=== PATIENT | female | born 1935 | race Caucasian/White ===

== ENCOUNTER 2022-11-13 11:06 | Inpatient (IN) | payer OTHER, BC ==
[~2022-11-13] VITALS: Ht 157.5 cm; Wt 91.2 kg
[2022-11-13] VITALS (14 sets, daily range): BP systolic 137–176; PULSE 76–104; RESP 17–31; TEMP 96.5–98.1; O2SAT 95–100
[2022-11-13 11:50] LABS: BASOPHILS # (AUTO) 0.1 K/uL (0.0-0.2); BASOPHILS % (AUTO) 0.4 % (0.0-2.0); EOSINOPHILS # (AUTO) 0.9 K/uL (0.0-0.4); EOSINOPHILS % (AUTO) 7.5 % (0.0-4.0); HEMATOCRIT 23.9 % (36-48); HEMOGLOBIN 7.4 g/dL (12.0-16.0); LYMPHOCYTES # (AUTO) 2.1 K/uL (1.0-5.5); LYMPHOCYTES % (AUTO) 17.2 % (20.5-51.5); MEAN CORPUSCULAR HEMOGLOBIN 29 pg (27-31); MEAN CORPUSCULAR HGB CONC 31 % (32-36); MEAN CORPUSCULAR VOLUME 95 fL (79.0-98.0); MONOCYTES # (AUTO) 1.2 K/uL (0.0-1.0); MONOCYTES % (AUTO) 9.3 % (1.7-9.3); NEUTROPHILS # (AUTO) 8.2 K/uL (1.8-7.7); NEUTROPHILS % (AUTO) 65.6 % (40.0-70.0); PLATELET COUNT (AUTO) 387 K/uL (130-430); RED BLOOD CELL COUNT(AUTO) 2.53 MIL/uL (4.2-6.2); RED CELL DISTRIBUTION WIDTH 19.6 % (9.0-15.0); WHITE BLOOD COUNT (AUTO) 12.5 K/uL (4.8-10.8)
[2022-11-13 12:12] LABS: ALANINE AMINOTRANSFERASE 15 U/L (12-78); ALBUMIN 2.4 g/dL (3.4-4.8); ANION GAP 3 (5-15); ASPARTATE AMINOTRANSFERASE 15 U/L (10-37); CALCIUM 8.9 mg/dL (8.4-11.0); CARBON DIOXIDE 33 mmol/L (23-29); CHLORIDE 97 mmol/L (98-107); GLUCOSE 125 mg/dL (74-106); SODIUM SERUM 133 mmol/L (136-145); TOTAL BILIRUBIN 0.3 mg/dL (0.0-1.0); TOTAL PROTEIN, SERUM 7.7 g/dL (6.4-8.3); UREA NITROGEN, BLOOD 39 mg/dL (8-21)
[2022-11-13 12:20] LABS: POTASSIUM 6.4 mmol/L (3.5-5.1)
[2022-11-13] MEDS ORDERED: FURO20TA4 GT (12:25)
[2022-11-13] MEDS ORDERED: CEFE1VIA3 IV (12:25)
[2022-11-13] MEDS ORDERED: FERR220S5 GT (12:25)
[2022-11-13] MEDS ORDERED: LACT1CAP14 GT (12:25)
[2022-11-13] MEDS ORDERED: BUDE0.5A INH (12:25)
[2022-11-13] MEDS ORDERED: INSU100V9 SUBCUT (12:25)
[2022-11-13] MEDS ORDERED: ALBU2.5V7 INH (12:25)
[2022-11-13] MEDS ORDERED: INSU100V SUBCUT (12:25)
[2022-11-13] MEDS ORDERED: HYDR-4037 GT (12:25)
[2022-11-13] MEDS ORDERED: ACET160O10 GT (12:25)
[2022-11-13] MEDS ORDERED: ASPI-524 PO (12:25)
[2022-11-13] MEDS ORDERED: DILT60TA3 GT (12:25)
[2022-11-13] MEDS ORDERED: LORA-258 GT (12:25)
[2022-11-13] MEDS ORDERED: PERIDEX PO (12:25)
[2022-11-13] MEDS ORDERED: DAPA10TA GT (12:25)
[2022-11-13] MEDS ORDERED: SERT25TA GT (12:26)
[2022-11-13] MEDS ORDERED: TRAM50TA2 PO (12:26)
[2022-11-13] MEDS ORDERED: LANS30CA56 GT (12:26)
[2022-11-13] MEDS ORDERED: SACU1TAB GT (12:26)
[2022-11-13] MEDS ORDERED: SPIR25TA6 GT (12:26)
[2022-11-13] MEDS ORDERED: METO25TA6 GT (12:26)
[2022-11-13] MEDS ORDERED: POLY17PO44 GT (12:26)
[2022-11-13] MEDS ORDERED: LACT10SO7 GT (12:26)
[2022-11-13] MEDS ORDERED: METO5TAB86 GT (12:26)
[2022-11-13] MEDS ORDERED: 0.45% NACL 1,000 ML IV ONE (12:45)
[2022-11-13] MEDS: SODIUM ZIRCONIUM CYCLOSILICATE 10 GM POWD.PACK PO ONE ×2 (12:45→16:45)
[2022-11-13] MEDS ORDERED: ASA81 PO (13:18)
[2022-11-13] MEDS ORDERED: LORazepam 2 MG/ML VIAL IVP ONE (13:30)
[2022-11-13] MEDS ORDERED: LORazepam 1 MG TABLET GT ONE (13:30)
[2022-11-13] MEDS: IPRATROPIUM/ALBUTEROL SULFATE 3 ML AMPUL.NEB (DUONEB) INH SCH ×3 (15:05→23:04)
[2022-11-13] MEDS ORDERED: traMADol HCL HCL 50 MG TABLET (ULTRAM) PO SCH (15:45)
[2022-11-13] MEDS ORDERED: LORazepam 1 MG TABLET GT PRN (15:45)
[2022-11-13] MEDS ORDERED: ALBUTEROL SULFATE 0.083% 2.5 MG/3 ML VIAL.NEB INH PRN (15:45)
[2022-11-13] MEDS ORDERED: SODIUM ZIRCONIUM CYCLOSILICATE 10 GM POWD.PACK PO ONE (16:35)
[2022-11-13] MEDS ORDERED: traMADol HCL HCL 50 MG TABLET (ULTRAM) GT PRN (16:45)
[2022-11-13] MEDS ORDERED: traMADol HCL HCL 50 MG TABLET (ULTRAM) ONE (16:57)
[2022-11-13] MEDS ORDERED: DEXTROSE 50% JECT 50 ML DISP.SYRIN ONE (18:31)
[2022-11-13] MEDS ORDERED: DEXTROSE 50% JECT 50 ML DISP.SYRIN IVP ONE (18:45)
[2022-11-13] MEDS ORDERED: D5/0.45 NS 500 ML IV ONE (18:45)
[2022-11-13] MEDS: BUDESONIDE 0.5 MG/2 ML AMPUL.NEB INH SCH (20:03)
[2022-11-13] MEDS: INSULIN GLARGINE 100 UNITS/ML, 10 ML VIAL SUBCUT SCH (21:00)
[2022-11-13] MEDS: FERROUS SULFATE 300 MG/5 ML UDC GT SCH (21:00)
[2022-11-13] MEDS ORDERED: CHLORHEXIDINE GLUCONATE 15 ML/DOSE, 480 ML MM SCH (21:00)
[2022-11-13] MEDS ORDERED: SPIRONOLACTONE 25 MG TABLET (ALDACTONE) GT SCH (21:00)
[2022-11-13 21:31] LABS: ANION GAP 3 (5-15); CALCIUM 9.3 mg/dL (8.4-11.0); CARBON DIOXIDE 30 mmol/L (23-29); CHLORIDE 103 mmol/L (98-107); GLUCOSE 111 mg/dL (74-106); POTASSIUM 5.7 mmol/L (3.5-5.1); SODIUM SERUM 136 mmol/L (136-145); UREA NITROGEN, BLOOD 31 mg/dL (8-21)
[2022-11-13] MEDS: POLYETHYLENE GLYCOL 3350, 17 GM/ POWD.PACK GT SCH (22:11)
[2022-11-13] MEDS: FUROSEMIDE 20 MG TABLET GT SCH (22:12)
[2022-11-13] MEDS: LANSOPRAZOLE 30 MG CAPSULE.DR GT SCH (22:12)
[2022-11-13] MEDS: DILTIAZEM HCL 60 MG TABLET GT SCH (22:12)
[2022-11-13] MEDS: SACUBITRIL/VALSARTAN 24 MG-26 MG 1 TABLET PO SCH (22:13)
[2022-11-13] MEDS: hydrALAZINE HCL 10 MG TABLET GT SCH (22:15)
[2022-11-13] MEDS ORDERED: hydrALAZINE HCL 10 MG TABLET ONE (22:17)
[2022-11-13] MEDS: AZTREONAM 1 GM in NS 50 ML IV SCH (22:18)
[2022-11-14] VITALS (36 sets, daily range): BP systolic 93–175; PULSE 78–103; RESP 12–39; TEMP 96.8–97.8; O2SAT 90–100
[2022-11-14 01:48] LABS: BASOPHILS # (AUTO) 0.1 K/uL (0.0-0.2); BASOPHILS % (AUTO) 0.9 % (0.0-2.0); EOSINOPHILS # (AUTO) 0.9 K/uL (0.0-0.4); EOSINOPHILS % (AUTO) 8.7 % (0.0-4.0); HEMATOCRIT 31.6 % (36-48); HEMOGLOBIN 10.2 g/dL (12.0-16.0); LYMPHOCYTES % (AUTO) 18.8 % (20.5-51.5); MEAN CORPUSCULAR HEMOGLOBIN 29 pg (27-31); MEAN CORPUSCULAR HGB CONC 32 % (32-36); MEAN CORPUSCULAR VOLUME 88 fL (79.0-98.0); MONOCYTES % (AUTO) 9.7 % (1.7-9.3); NEUTROPHILS # (AUTO) 6.7 K/uL (1.8-7.7); NEUTROPHILS % (AUTO) 61.9 % (40.0-70.0); PLATELET COUNT (AUTO) 349 K/uL (130-430); RED BLOOD CELL COUNT(AUTO) 3.58 MIL/uL (4.2-6.2); RED CELL DISTRIBUTION WIDTH 21.4 % (9.0-15.0); WHITE BLOOD COUNT (AUTO) 10.9 K/uL (4.8-10.8)
[2022-11-14 02:14] LABS: ALANINE AMINOTRANSFERASE 9 U/L (12-78); ALBUMIN 2.4 g/dL (3.4-4.8); ANION GAP 3 (5-15); ASPARTATE AMINOTRANSFERASE 19 U/L (10-37); CALCIUM 9.8 mg/dL (8.4-11.0); CARBON DIOXIDE 31 mmol/L (23-29); CHLORIDE 103 mmol/L (98-107); CREATININE 0.63 mg/dL (0.55-1.30); GLUCOSE 96 mg/dL (74-106); POTASSIUM 5.7 mmol/L (3.5-5.1); SODIUM SERUM 137 mmol/L (136-145); TOTAL BILIRUBIN 0.5 mg/dL (0.0-1.0); TOTAL PROTEIN, SERUM 7.8 g/dL (6.4-8.3); UREA NITROGEN, BLOOD 29 mg/dL (8-21)
[2022-11-14 02:23] LABS: TOTAL IRON BIND. CAPACITY 323 ug/dL (250-450)
[2022-11-14] MEDS: IPRATROPIUM/ALBUTEROL SULFATE 3 ML AMPUL.NEB (DUONEB) INH SCH ×6 (03:11→23:05)
[2022-11-14] MEDS: AZTREONAM 1 GM in NS 50 ML IV SCH ×3 (05:40→22:03)
[2022-11-14] MEDS: hydrALAZINE HCL 10 MG TABLET GT SCH ×3 (05:41→22:03)
[2022-11-14] MEDS ORDERED: SODIUM POLYSTYRENE SULFONATE 15 GM/60 ML UDBTL GT ONE (07:45)
[2022-11-14] MEDS ORDERED: FUROSEMIDE 40 MG/4 ML VIAL IVP ONE (08:00)
[2022-11-14] MEDS ORDERED: NON-FORMULARY MEDICATION (Dapagliflozin Propanediol (Farxiga) 1 TAB) GT SCH (09:00)
[2022-11-14] MEDS: INSULIN GLARGINE 100 UNITS/ML, 10 ML VIAL SUBCUT SCH ×2 (09:00→21:00)
[2022-11-14] MEDS: FERROUS SULFATE 300 MG/5 ML UDC GT SCH ×3 (09:05→21:53)
[2022-11-14] MEDS: LACTOBACILLUS RHAMNOSUS GG 1 CAP CAPSULE GT SCH (09:06)
[2022-11-14] MEDS: LANSOPRAZOLE 30 MG CAPSULE.DR GT SCH ×2 (09:06→21:53)
[2022-11-14] MEDS: METOCLOPRAMIDE HCL 10 MG TABLET GT SCH ×4 (09:06→21:54)
[2022-11-14] MEDS: SERTRALINE HCL 50 MG TABLET GT SCH (09:08)
[2022-11-14] MEDS: DILTIAZEM HCL 60 MG TABLET GT SCH ×3 (09:09→21:52)
[2022-11-14] MEDS: SACUBITRIL/VALSARTAN 24 MG-26 MG 1 TABLET PO SCH ×2 (09:10→22:02)
[2022-11-14] MEDS: POLYETHYLENE GLYCOL 3350, 17 GM/ POWD.PACK GT SCH ×2 (09:10→21:54)
[2022-11-14] MEDS: FUROSEMIDE 20 MG TABLET GT SCH ×2 (09:10→21:54)
[2022-11-14] MEDS: ASPIRIN 81 MG TAB.CHEW PO SCH (09:15)
[2022-11-14] MEDS: BUDESONIDE 0.5 MG/2 ML AMPUL.NEB INH SCH ×2 (09:43→20:10)
[2022-11-14] MEDS ORDERED: LORazepam 2 MG/ML VIAL IVP PRN (12:30)
[2022-11-14] MEDS ORDERED: amLODIPine BESYLATE 10 MG TABLET PO ONE (12:45)
[2022-11-14] MEDS: INSULIN REGULAR, HUMAN 100 UNITS/ML, 3 ML VIAL (humuLIN R) SUBCUT PRN (13:45)
[2022-11-14 13:57] LABS: ANION GAP 6 (5-15); CALCIUM 8.9 mg/dL (8.4-11.0); CARBON DIOXIDE 32 mmol/L (23-29); CHLORIDE 99 mmol/L (98-107); CREATININE 0.69 mg/dL (0.55-1.30); GLUCOSE 174 mg/dL (74-106); POTASSIUM 4.9 mmol/L (3.5-5.1); SODIUM SERUM 137 mmol/L (136-145); UREA NITROGEN, BLOOD 25 mg/dL (8-21)
[2022-11-14] MEDS: CHLORHEXIDINE GLUC 0.12% 15 ML MOUTHWASH UDC MM SCH ×2 (14:37→21:55)
[2022-11-14] MEDS: ACETYLCYSTEINE 20% 4 ML VIAL (RT) INH SCH ×3 (15:26→23:06)
[2022-11-15] VITALS (36 sets, daily range): BP systolic 101–190; PULSE 77–97; RESP 15–34; TEMP 97.4–97.8; O2SAT 92–100
[2022-11-15] MEDS: IPRATROPIUM/ALBUTEROL SULFATE 3 ML AMPUL.NEB (DUONEB) INH SCH ×6 (02:20→23:26)
[2022-11-15] MEDS: ACETYLCYSTEINE 20% 4 ML VIAL (RT) INH SCH ×6 (02:20→23:26)
[2022-11-15 05:19] LABS: BASOPHILS % (AUTO) 0.4 % (0.0-2.0); EOSINOPHILS # (AUTO) 0.9 K/uL (0.0-0.4); EOSINOPHILS % (AUTO) 9.4 % (0.0-4.0); HEMATOCRIT 32.1 % (36-48); HEMOGLOBIN 10.4 g/dL (12.0-16.0); LYMPHOCYTES # (AUTO) 1.9 K/uL (1.0-5.5); LYMPHOCYTES % (AUTO) 20.4 % (20.5-51.5); MEAN CORPUSCULAR HEMOGLOBIN 29 pg (27-31); MEAN CORPUSCULAR HGB CONC 32 % (32-36); MEAN CORPUSCULAR VOLUME 90 fL (79.0-98.0); NEUTROPHILS # (AUTO) 5.4 K/uL (1.8-7.7); NEUTROPHILS % (AUTO) 58.8 % (40.0-70.0); PLATELET COUNT (AUTO) 351 K/uL (130-430); RED BLOOD CELL COUNT(AUTO) 3.59 MIL/uL (4.2-6.2); RED CELL DISTRIBUTION WIDTH 21.1 % (9.0-15.0); WHITE BLOOD COUNT (AUTO) 9.2 K/uL (4.8-10.8)
[2022-11-15 05:27] LABS: ALANINE AMINOTRANSFERASE 11 U/L (12-78); ALBUMIN 2.2 g/dL (3.4-4.8); ANION GAP 7 (5-15); ASPARTATE AMINOTRANSFERASE 14 U/L (10-37); CALCIUM 8.8 mg/dL (8.4-11.0); CARBON DIOXIDE 31 mmol/L (23-29); CHLORIDE 101 mmol/L (98-107); CREATININE 0.66 mg/dL (0.55-1.30); GLUCOSE 137 mg/dL (74-106); POTASSIUM 4.4 mmol/L (3.5-5.1); SODIUM SERUM 139 mmol/L (136-145); TOTAL BILIRUBIN 0.5 mg/dL (0.0-1.0); TOTAL PROTEIN, SERUM 7.3 g/dL (6.4-8.3); UREA NITROGEN, BLOOD 21 mg/dL (8-21)
[2022-11-15 05:42] LABS: BILIRUBIN,URINE NEGATIVE (NEGATIVE); BLOOD, URINE NEGATIVE (NEGATIVE); COLOR,URINE YELLOW (YELLOW); GLUCOSE,URINE Trace (NEGATIVE); KETONES,URINE NEGATIVE (NEGATIVE); NITRITE, URINE NEGATIVE (NEGATIVE); PROTEIN URINE 2+ (NEGATIVE)
[2022-11-15] MEDS: AZTREONAM 1 GM in NS 50 ML IV SCH ×3 (06:04→21:34)
[2022-11-15] MEDS: hydrALAZINE HCL 10 MG TABLET GT SCH ×3 (06:04→21:34)
[2022-11-15 06:39] LABS: CLARITY/URINE CLOUDY (CLEAR); LEUKOCYTE ESTERASE ,URINE TRACE (NEGATIVE)
[2022-11-15 06:44] LABS: BACTERIA,URINE FEW /HPF (None Seen); RBC,URINE 0-3 /HPF (0-3); YEAST,URINE Many /HPF (None Seen)
[2022-11-15] MEDS ORDERED: LACTULOSE 20 GM/30 ML UDC GT PRN (07:15)
[2022-11-15] MEDS: BUDESONIDE 0.5 MG/2 ML AMPUL.NEB INH SCH ×2 (07:39→23:25)
[2022-11-15] MEDS: POLYETHYLENE GLYCOL 3350, 17 GM/ POWD.PACK GT SCH ×2 (09:00→21:31)
[2022-11-15] MEDS: METOCLOPRAMIDE HCL 10 MG TABLET GT SCH ×3 (09:35→21:31)
[2022-11-15] MEDS: LACTOBACILLUS RHAMNOSUS GG 1 CAP CAPSULE GT SCH (09:35)
[2022-11-15] MEDS: SERTRALINE HCL 50 MG TABLET GT SCH (09:35)
[2022-11-15] MEDS: FUROSEMIDE 20 MG TABLET GT SCH ×2 (09:35→21:31)
[2022-11-15] MEDS: FERROUS SULFATE 300 MG/5 ML UDC GT SCH ×2 (09:35→21:31)
[2022-11-15] MEDS: LANSOPRAZOLE 30 MG CAPSULE.DR GT SCH ×2 (09:35→21:31)
[2022-11-15] MEDS: DILTIAZEM HCL 60 MG TABLET GT SCH ×3 (09:36→21:30)
[2022-11-15] MEDS: ASPIRIN 81 MG TAB.CHEW PO SCH (09:36)
[2022-11-15] MEDS: SACUBITRIL/VALSARTAN 24 MG-26 MG 1 TABLET PO SCH ×2 (09:43→21:32)
[2022-11-15] MEDS: CHLORHEXIDINE GLUC 0.12% 15 ML MOUTHWASH UDC MM SCH ×3 (09:43→21:32)
[2022-11-15] MEDS: INSULIN GLARGINE 100 UNITS/ML, 10 ML VIAL SUBCUT SCH ×2 (09:44→21:32)
[2022-11-15] MEDS: INSULIN REGULAR, HUMAN 100 UNITS/ML, 3 ML VIAL (humuLIN R) SUBCUT PRN ×2 (12:53→23:39)
[2022-11-15] MEDS: traMADol HCL HCL 50 MG TABLET (ULTRAM) PO PRN ×2 (17:30→21:36)
[2022-11-16] VITALS (31 sets, daily range): BP systolic 129–184; PULSE 73–94; RESP 14–28; TEMP 97.7–99.8; O2SAT 93–100
[2022-11-16] MEDS: ACETYLCYSTEINE 20% 4 ML VIAL (RT) INH SCH ×6 (05:06→22:46)
[2022-11-16] MEDS: IPRATROPIUM/ALBUTEROL SULFATE 3 ML AMPUL.NEB (DUONEB) INH SCH ×6 (05:06→22:46)
[2022-11-16 05:20] LABS: BASOPHILS % (AUTO) 0.4 % (0.0-2.0); EOSINOPHILS # (AUTO) 0.9 K/uL (0.0-0.4); EOSINOPHILS % (AUTO) 10.8 % (0.0-4.0); HEMATOCRIT 31.5 % (36-48); HEMOGLOBIN 10.2 g/dL (12.0-16.0); LYMPHOCYTES # (AUTO) 2.1 K/uL (1.0-5.5); LYMPHOCYTES % (AUTO) 24.4 % (20.5-51.5); MEAN CORPUSCULAR HEMOGLOBIN 29 pg (27-31); MEAN CORPUSCULAR HGB CONC 32 % (32-36); MEAN CORPUSCULAR VOLUME 89 fL (79.0-98.0); MONOCYTES % (AUTO) 11.7 % (1.7-9.3); NEUTROPHILS # (AUTO) 4.6 K/uL (1.8-7.7); NEUTROPHILS % (AUTO) 52.7 % (40.0-70.0); PLATELET COUNT (AUTO) 342 K/uL (130-430); RED BLOOD CELL COUNT(AUTO) 3.54 MIL/uL (4.2-6.2); RED CELL DISTRIBUTION WIDTH 20.7 % (9.0-15.0); WHITE BLOOD COUNT (AUTO) 8.7 K/uL (4.8-10.8)
[2022-11-16 05:56] LABS: ANION GAP 6 (5-15); CARBON DIOXIDE 31 mmol/L (23-29); CHLORIDE 104 mmol/L (98-107); CREATININE 0.63 mg/dL (0.55-1.30); GLUCOSE 95 mg/dL (74-106); POTASSIUM 3.7 mmol/L (3.5-5.1); SODIUM SERUM 141 mmol/L (136-145); UREA NITROGEN, BLOOD 25 mg/dL (8-21)
[2022-11-16] MEDS: AZTREONAM 1 GM in NS 50 ML IV SCH ×3 (05:59→23:42)
[2022-11-16] MEDS: hydrALAZINE HCL 10 MG TABLET GT SCH ×3 (05:59→22:07)
[2022-11-16 08:06] LABS: FERRITIN 284 ng/mL (15-150); FOLATE (FOLIC ACID) >20.0 ng/mL (>3.0)
[2022-11-16] MEDS: BUDESONIDE 0.5 MG/2 ML AMPUL.NEB INH SCH ×2 (08:10→19:37)
[2022-11-16] MEDS: POLYETHYLENE GLYCOL 3350, 17 GM/ POWD.PACK GT SCH ×2 (09:00→22:04)
[2022-11-16] MEDS: DILTIAZEM HCL 60 MG TABLET GT SCH ×3 (09:22→22:10)
[2022-11-16] MEDS: FERROUS SULFATE 300 MG/5 ML UDC GT SCH ×2 (09:23→22:03)
[2022-11-16] MEDS: LACTOBACILLUS RHAMNOSUS GG 1 CAP CAPSULE GT SCH (09:23)
[2022-11-16] MEDS: LANSOPRAZOLE 30 MG CAPSULE.DR GT SCH ×2 (09:25→22:06)
[2022-11-16] MEDS: FUROSEMIDE 20 MG TABLET GT SCH ×2 (09:25→22:05)
[2022-11-16] MEDS: METOCLOPRAMIDE HCL 10 MG TABLET GT SCH ×3 (09:26→22:04)
[2022-11-16] MEDS: ASPIRIN 81 MG TAB.CHEW PO SCH (09:26)
[2022-11-16] MEDS: SERTRALINE HCL 50 MG TABLET GT SCH (09:26)
[2022-11-16] MEDS: INSULIN GLARGINE 100 UNITS/ML, 10 ML VIAL SUBCUT SCH ×2 (09:27→22:18)
[2022-11-16] MEDS: SACUBITRIL/VALSARTAN 24 MG-26 MG 1 TABLET PO SCH ×2 (09:30→22:07)
[2022-11-16] MEDS: CHLORHEXIDINE GLUC 0.12% 15 ML MOUTHWASH UDC MM SCH ×3 (09:30→22:05)
[2022-11-16] MEDS: traMADol HCL HCL 50 MG TABLET (ULTRAM) PO PRN (09:31)
[2022-11-17] VITALS (16 sets, daily range): BP systolic 135–174; PULSE 77–91; RESP 16–18; TEMP 97.7–98.5; O2SAT 96–100
[2022-11-17] MEDS: ACETYLCYSTEINE 20% 4 ML VIAL (RT) INH SCH ×5 (02:21→19:50)
[2022-11-17] MEDS: IPRATROPIUM/ALBUTEROL SULFATE 3 ML AMPUL.NEB (DUONEB) INH SCH ×5 (02:21→19:50)
[2022-11-17] MEDS: AZTREONAM 1 GM in NS 50 ML IV SCH ×2 (06:20→14:07)
[2022-11-17] MEDS: hydrALAZINE HCL 10 MG TABLET GT SCH ×2 (06:21→14:09)
[2022-11-17] MEDS: BUDESONIDE 0.5 MG/2 ML AMPUL.NEB INH SCH ×2 (10:01→19:51)
[2022-11-17] MEDS: DILTIAZEM HCL 60 MG TABLET GT SCH ×2 (10:26→14:08)
[2022-11-17] MEDS: LACTOBACILLUS RHAMNOSUS GG 1 CAP CAPSULE GT SCH (10:26)
[2022-11-17] MEDS: FERROUS SULFATE 300 MG/5 ML UDC GT SCH (10:26)
[2022-11-17] MEDS: LANSOPRAZOLE 30 MG CAPSULE.DR GT SCH (10:27)
[2022-11-17] MEDS: POLYETHYLENE GLYCOL 3350, 17 GM/ POWD.PACK GT SCH (10:27)
[2022-11-17] MEDS: FUROSEMIDE 20 MG TABLET GT SCH (10:27)
[2022-11-17] MEDS: METOCLOPRAMIDE HCL 10 MG TABLET GT SCH ×2 (10:27→14:11)
[2022-11-17] MEDS: ASPIRIN 81 MG TAB.CHEW PO SCH (10:28)
[2022-11-17] MEDS: CHLORHEXIDINE GLUC 0.12% 15 ML MOUTHWASH UDC MM SCH ×2 (10:28→14:11)
[2022-11-17] MEDS: SERTRALINE HCL 50 MG TABLET GT SCH (10:28)
[2022-11-17] MEDS: SACUBITRIL/VALSARTAN 24 MG-26 MG 1 TABLET PO SCH (10:30)
[2022-11-17] MEDS: INSULIN GLARGINE 100 UNITS/ML, 10 ML VIAL SUBCUT SCH (10:33)
[2022-11-18] MEDS ORDERED: EMPAGLIFLOZIN 10 MG TABLET PO SCH (09:00)
== END 2022-11-17 20:21 | DRG 207 ==
LOC: SED 11:06 → SMU 12:38 → SIC 19:19 → STU 11-16 19:48
PROVIDERS: ADMIT Family Medicine; ATTEND Family Medicine
PROC: 5A1955Z Respiratory Ventilation, Greater than 96 Consecutive Hours (ICD-10-PCS; principal; 2022-11-13)
PROC: 30233N1 Transfusion of Nonautologous Red Blood Cells into Peripheral Vein, Percutaneous Approach (ICD-10-PCS; 2022-11-13)
DX: J18.9 Pneumonia, unspecified organism (principal); J96.20 Acute and chronic respiratory failure, unspecified whether with hypoxia or hypercapnia; E43 Unspecified severe protein-calorie malnutrition; I42.9 Cardiomyopathy, unspecified; Z99.11 Dependence on respirator [ventilator] status; I50.22 Chronic systolic (congestive) heart failure; F03.90 Unspecified dementia, unspecified severity, without behavioral disturbance, psychotic disturbance, mood disturbance, and anxiety; D63.8 Anemia in other chronic diseases classified elsewhere; I48.0 Paroxysmal atrial fibrillation; R13.10 Dysphagia, unspecified; E87.5 Hyperkalemia; E11.9 Type 2 diabetes mellitus without complications; I11.0 Hypertensive heart disease with heart failure; E66.9 Obesity, unspecified; Z20.822 Contact with and (suspected) exposure to COVID-19; Z96.659 Presence of unspecified artificial knee joint; I35.0 Nonrheumatic aortic (valve) stenosis; Z88.5 Allergy status to narcotic agent; Z88.0 Allergy status to penicillin; Z91.041 Radiographic dye allergy status; Z79.899 Other long term (current) drug therapy; Z93.0 Tracheostomy status; Z74.01 Bed confinement status; Z79.4 Long term (current) use of insulin; Z79.82 Long term (current) use of aspirin; Z68.36 Body mass index [BMI] 36.0-36.9, adult; Z93.1 Gastrostomy status; Z86.73 Personal history of transient ischemic attack (TIA), and cerebral infarction without residual deficits; Z90.49 Acquired absence of other specified parts of digestive tract
CPT/HCPCS: 36415; 71045; 80048; 80053; 81000; 81003; 82607; 82728; 82746; 82962; 83540; 83550; 83880; 85025; 86886; 86900; 86901; 86920; 87070-TC; 87081; 87205-TC; 93005; 93306; 94002; 94003; 94640; 94760; 96374; 99285; G0378; J1815; J1940; J2060; J3490; J7608; J7626; J8597; P9021